=== PATIENT | female | born 1940 | race Caucasian/White ===

== ENCOUNTER 2020-05-04 08:24 | Emergency (ER) | payer MEDICARE, MEDICAID, SELFPAY ==
--- NOTE | ~2020-05-04 | XR_ITS ---
EXAMINATION: BILATERAL KNEE. CLINICAL INFORMATION: Status post fall. Bilateral knee pain. COMPARISON: None TECHNIQUE: 4 views each knee. FINDINGS: Right knee: There is moderate loss of medial and patellofemoral compartment joint space with periarticular spurring. No bony erosive changes seen. The soft tissues are normal. No abnormal joint effusion or loose bodies visualized. Left knee: There is a total left knee prosthesis with prosthetic components alignment. No loosening seen. No abnormal joint effusion. No fracture. 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 No acute fracture or dislocation. Total left knee arthroplasty with prosthetic components in satisfactory alignment.
--- NOTE | ~2020-05-04 | XR_ITS ---
EXAMINATION: BILATERAL KNEE. CLINICAL INFORMATION: Status post fall. Bilateral knee pain. COMPARISON: None TECHNIQUE: 4 views each knee. FINDINGS: Right knee: There is moderate loss of medial and patellofemoral compartment joint space with periarticular spurring. No bony erosive changes seen. The soft tissues are normal. No abnormal joint effusion or loose bodies visualized. Left knee: There is a total left knee prosthesis with prosthetic components alignment. No loosening seen. No abnormal joint effusion. No fracture. 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 No acute fracture or dislocation. Total left knee arthroplasty with prosthetic components in satisfactory alignment.
--- NOTE | ~2020-05-04 | CT_ITS ---
EXAMINATION: CT BRAIN, CT CERVICAL SPINE, CT CHEST AND ABDOMEN WITHOUT CONTRAST. CLINICAL INFORMATION: Unwitnessed fall. History of dementia. COMPARISON: CT brain and cervical spine 09/09/2019. TECHNIQUE: 5 mm thin axial and reformatted 2 mm thin sagittal and coronal images of brain were obtained. 3 mm thin axial and reformatted 2 thin images of cervical spinal performed. Lastly axial 5 mm thin and reformatted 3 mm thin sagittal and coronal images of chest, abdomen and pelvis were obtained without contrast. DLP 2740 FINDINGS: BRAIN: There is no acute intra-axial, extra-axial bleed, masses or midline shift. There is no acute infarction in evolution. The lateral ventricles are symmetrical in size and configuration mild prominence. There is periventricular hypodensity in both cerebral hemispheres without mass effect. Bone windows reveal no calvarial abnormality. There is no scalp abnormality seen. The paranasal sinuses are well-aerated. There is mild mucoperiosteal thickening inferior right mastoid sinus. CERVICAL SPINE: On sagittal reconstructed images there is mild straightening of cervical lordosis. Grade 1 retrolisthesis C4 over C5 is noted. Rest of the alignment is preserved. Loss of C4-C5, C5-C6 and C6-C7 disc heights with posterior spondylosis is noted. There is no visible acute fracture, dislocation or subluxation seen. No lytic or sclerotic process seen. The craniovertebral junction and C1-C2 alignment is normal. CHEST: Both lungs are well-expanded and clear of acute pneumonic process. There are no pulmonary nodules, consolidation or atelectasis. The heart size and the great vessels are normal caliber. There are coronary artery calcifications. No pericardial effusion seen. No abnormal mediastinal or hilar lymph nodes seen. The thyroid lobes are symmetrical and normal. The central trachea and the bronchi are widely patent. The axilla and the chest wall appears unremarkable. Bone windows reveal no visible rib fracture. There are degenerative disc changes and ventral spondylosis mid dorsal spine. No lytic process seen. ABDOMEN AND PELVIS: Visualized liver, spleen and pancreas is unremarkable. There is dependent radiopaque gallstones. The largest radiopaque stone measuring approximately 1.4 cm. No wall thickening seen. Bilateral adrenal glands are symmetrical and normal. Both kidneys are normal size, shape and position. No radiopaque renal calculi or hydroureteronephrosis seen. There is normal cortical thickness. Focal 7 mm calcification is seen in the right renal pelvis likely small aneurysm. No radiopaque renal calculi or hydronephrosis seen. There is scattered stool and gas seen throughout the colon without any significant distention. There are a few scattered diverticuli seen in colon. Mild fat stranding is seen in the perirectal fascia with eccentric wall wall thickening on axial image 58/17 The small bowel loops are normal caliber. There are no diverticula in the disease is suspected diverticulitis. The stomach is unremarkable. Appendix is not seen. The abdominal wall appears unremarkable. No evidence of hernia. Imaging through the pelvis reveals unremarkable nondistended urinary bladder. The uterus is anteverted and appears unremarkable. No adnexal mass or free fluid seen. There is grade 1 anterolisthesis L4 over L5 fusion with degenerative disc changes from L3-L4 through L5-S1 disc levels no lytic or sclerotic process seen. There is bilateral facet joint arthropathy. There is a rudimentary S1-S1 2 disc and lumbar appearing S1 vertebra. CT/CT abdomen pelvis wo con IMPRESSION: No acute intracranial process seen. Minimal inflammatory changes in right inferior mastoid sinus. Degenerative disc changes without acute fracture, dislocation or subluxation in cervical spine. There is no acute process seen in the chest, abdomen and pelvis. There is colonic scattered diverticulosis with nonspecific mild perirectal fat stranding. There is no underlying diverticulitis. There is a eccentric soft tissue thickening lateral rectum. Question underlying lesion. Recommend correlation with endoscopy.
[2020-05-04 08:29] VITALS: BP 110/36; BP 110/60; PULSE 55; RESP 16; TEMP 36.6; O2SAT 96
--- NOTE | 2020-05-04 08:53 | ECG_ITS ---
Test Reason : FALL Blood Pressure : / mmHG Vent. Rate : 056 BPM Atrial Rate : 056 BPM P-R Int : 194 ms QRS Dur : 078 ms QT Int : 468 ms P-R-T Axes : 063 022 042 degrees QTc Int : 451 ms Sinus bradycardia cannot exclude old Septal infarct , age undetermined Abnormal ECG When compared with ECG of 13-FEB-2018 21:34, Septal infarct is now Present - could be from lead placement Referred By: Tess Weathers Electronically Signed By:BRIGID PANCHAL
[2020-05-04 10:01] LABS: MANUAL DIFF FLAG NO
[2020-05-04 10:03] LABS: Basophils Percent Auto 0.3 % (0-2); Eosinophils Absolute Auto 0.2 X10*3/uL (0.0-0.4); Eosinophils Percent Auto 1.9 % (0-4); Hematocrit 36.6 % (37-47); Hemoglobin 11.2 g/dl (12.0-16.0); Imm Gran Abs Auto 0.03 X10*3/uL (0.00-0.03); Imm Gran Pct Auto 0.4 % (0.0-0.4); Lymphocytes Absolute Auto 0.7 X10*3/uL (1.2-4.9); Lymphocytes Percent Auto 9.4 % (20-40); Mean Corpuscular HGB Conc 30.6 g/dl (31.0-35.0); Mean Corpuscular Hemoglobin 28.6 pg (27.0-33.0); Mean Corpuscular Volume 93.6 fL (80-98); Mean Platelet Volume 10.2 fL (9.4-12.3); Monocytes Absolute Auto 0.6 X10*3/uL (0.1-1.2); Monocytes Percent Auto 7.7 % (2-11); Neutrophils Absolute Auto 6.3 X10*3/uL (2.0-8.3); Neutrophils Percent Auto 80.3 % (45-73); Platelet Count 188 X10*3/uL (160-400); Red Blood Count 3.91 X10*6/uL (4.20-5.50); Red Cell Distribution Width 14.6 % (11.0-16.0); White Blood Count 7.8 X10*3/uL (4.8-10.8)
[2020-05-04 10:08] LABS: Prothrombin Time 11.6 SEC (10.8-13.0)
--- NOTE | 2020-05-04 10:08 | PC.NURSE ---
AFIB ON MONITOR, AWAITING CT RESULTS, NAD, NO COMPLAINTS, COLLAR IN PLACE
[2020-05-04 10:26] LABS: Influenza A PCR NEGATIVE (Negative); Influenza B PCR NEGATIVE (Negative); Resp Syncy Virus RNA Qual PCR NEGATIVE (Negative); SARS COV2 PCR INHOUSE NEGATIVE (Negative)
[2020-05-04 10:33] VITALS: BP 123/44; PULSE 55; RESP 18; O2SAT 99
[2020-05-04 10:33] LABS: Alanine Aminotransferase 17 U/L (0-31); Albumin Level 3.4 g/dL (3.5-5.0); Alkaline Phosphatase 57 U/L (39-117); Anion Gap 11 (12-20); Aspartate Amino Transferase 13 U/L (5-31); Bilirubin Direct 0.3 mg/dL (0.0-0.5); Bilirubin Total 0.8 mg/dL (0.0-1.0); Blood Urea Nitrogen 24 mg/dL (9-16); Calcium 8.4 mg/dL (8.4-10.2); Carbon Dioxide 28 mmol/L (22-29); Chloride 107 mmol/L (96-108); Creatinine Clr Calc Pharmacy 54.1; Estimated Glomerular Filt Rate > 60; Glucose Random 78 mg/dL (60-115); Magnesium 1.9 mg/dL (1.6-2.6); Potassium 4.9 mmol/L (3.3-5.1); Sodium 141 mmol/L (135-145); Total Protein 5.3 g/dL (6.5-8.0)
[2020-05-04 10:39] LABS: Troponin-I High Sensitivity 6.5 ng/L (<3.5-17.0)
--- NOTE | 2020-05-04 11:09 | ED_ITS ---
HPI - Fall General Chief Complaint: Fall Stated Complaint: fall Time Seen by Provider: 05/04/20 08:47 Source: patient, EMS and RN notes reviewed Mode of arrival: EMS Limitations: altered mental status (History of dementia) History of Present Illness HPI Narrative: 79-year-old female with a past medical history of dementia with behavioral disturbance, hypothyroidism, secondary hypertension, hyperlipidemia and metabolic syndrome who is currently residing at [facility] at [facility] after an unwitnessed fall unsure if head injury. Patient is not on any blood thinners. Patient is complaining of bilateral knee pain. MD complaint: fall Onset (ago): minute(s) (Prior to arrival) Fall witnessed: no Place fall occurred: assisted/SNF Loss of consciousness: unsure Prolonged down time: unclear Symptoms prior to fall: other (Unsure due to patient history of dementia she cannot remember) Location of injury: other (Patient is complaining of bilateral knee pain) Related Data Allergies Allergy/AdvReac Type Severity Reaction Status Date / Time No Known Allergies Allergy Unverified 11/19/19 17:35 [No Known Allergies*] Review of Systems Review of Systems: Yes Unobtainable due to mental status (History of dementia) [facility] Past Medical History Attestation statement: The following information was validated with the patient. Medical History Dementia with behavioral disturbance Hyperlipemia Hypothyroid Metabolic syndrome Secondary hypertension Social History Social History Advance Directives: Yes Advance Directives Information Provided: No Advance Directives on File: No Physical Exam Vital Signs: Vital Signs: Last Vital Signs Temp 98 F 05/04/20 08:29 Pulse 57 05/04/20 12:54 Resp 16 05/04/20 12:54 BP 127/42 L 05/04/20 12:54 Pulse Ox 98 05/04/20 12:54 Body Mass Index 30.0 Vital signs have been reviewed as normal and appeared to be correct. Blood pressure hypotensive at 110/36. Heart rate bradycardic at 55. Respiration rate normal. Temperature normal. Oxygen saturation normal. Appearance: Alert. Pleasantly confused due to dementia. No acute distress. Head: Normal external exam. Normocephalic. Atraumatic. Able to rotate head bilaterally. Eyes: PERRLA. EOMI. No nystagmus noted. Conjunctiva and sclera normal. Eyelids normal. Corneal reflex normal. ENT: EAC normal. TM's Normal. Hearing normal. Pharynx normal. Uvula midline. tongue midline. Moist mucous membranes. No trismus noted. No drooling noted. No muffled voice noted. No nystagmus noted. Neck: Normal inspection. Neck supple. FROM. No adenopathy. Trachea midline. Thyroid Normal. No meningeal signs. No neck mass noted. CVS: Normal heart rate and rhythm. Heart sound normal. No murmurs noted. Pulses normal throughout. Respiratory: No respiratory distress. Painless inspiration. Breath sounds no rmal. No wheezes/rales/rhonchi noted. Chest nontender. No accessory muscle usage noted or decreased air movement noted. Abdomen: Soft and nontender. Bowel sounds normal in all 4 quadrants. No disten tion noted. No organomegaly noted. No visible injury noted. Back: No CVA tenderness. Full range of motion noted. Skin: Skin warm and dry. Normal skin color. Normal skin turgor. No rashes/lesions/lacerations noted. Extremities: Tender to palpation to bilateral knees. No laxity noted to bilateral knees. No obvious deformities noted to bilateral ease. Full range of motion to bilateral knees. No rashes/lesion/induration/fluctuance/abrasion/lacerations or signs of infection noted to bilateral knees. No calf tenderness noted. No lower extremity edema. Otherwise all other Extremities exhibit normal range of motion and nontender. Able to shrug shoulders bilaterally and keep up against resistance. Neuro: Alert and pleasantly confused due to dementia. No motor deficit. No sensory deficit. Reflexes normal. Moving all extremities. No focal motor deficits. Cranial nerves II-XI intact bilaterally. Facial strength normal. Speech normal. Gait normal. Strength 5/5 throughout. No pronator drift. No tremor noted. No fasciculations noted. No rigidity noted. Muscle tone normal throughout. No asterixis noted. [id number] test normal. Heel to greer test normal. Hand drop from overhead Misses face. NIHSS score 0. Course Course Course Narrative: 8;55am - 79-year-old female with a past medical history of dementia with behavioral disturbance, hypothyroidism, secondary hypertension, hyperlipidemia and metabolic syndrome who is currently residing at SNF at [facility] after an unwitnessed fall unsure if head injury or LOC not on any blood thinners complaining of bilateral knee pain. - on exam patient is alert although pleasantly and confused not in any acute distress. Patient noted to be hypotensive at 110/36 and bradycardic at 55 otherwise all other vitals are within normal limits. No signs of trauma. No signs of dehydration. Heart sounds normal. Lungs clear to auscultation. Abdomen is soft and nontender. No focal neuro deficits noted. NIH SS score 0. - Cncern for CVA vs SAH vs ACS vs electrolyte abnormality vs fall - Plan; Labs, EKG, CT scan of brain/cervical spine, CT scan of chest without contrast, CT scan of abdomen and pelvis without contrast, bilateral knee x-rays then re-evaluate. Reevaluation(s) Reevaluation #1: - patient mild anemia RBC 3.91, hemoglobin 11.2, hematocrit 36.6. - BUN 24 - troponin 6.5 therefore will repeat in 3 hours - otherwise all other labs are within normal limits - EKG is sinus bradycardia no acute ischemic changes noted. - CT SCAN OF BRAIN/CERVICAL SPINE revealed chronic changes no acute processes noted. - CT scan of abdomen and pelvis without contrast revealed diverticulosis with nonspecific mild perirectal fat stranding no underlying diverticulitis although there is the eccentric soft tissue thickening at the lateral rectum questioning underlying lesion recommending correlation with endoscope otherwise no other acute processes noted - awaiting repeat troponin at 12:30pm if negative will DC back to halfway facility. Time: 12:13 Reevaluation #2: - repeat troponin negative delta. Therefore will DC back home back to the halfway facility and instructions to follow-up with primary care provider. Nursing facility updated at this time. Patient's sister Anika was also updated at this time. Time: 13:27 MDM - Fall Medical Records Attestation: I reviewed the patient's medical records. Lab Data Attestation: I reviewed the patient's lab results. Result diagrams: 05/04/20 09:39 05/04/20 09:39 Labs: Lab Results 05/04/20 05/04/20 05/04/20 Range/Units 09:38 09:39 09:39 WBC 7.8 (4.8-10.8) X10*3/uL RBC 3.91 L (4.20-5.50) X10*6/uL Hgb 11.2 L (12.0-16.0) g/dl Hct 36.6 L (37-47) % MCV 93.6 (80-98) fL MCH 28.6 (27.0-33.0) pg MCHC 30.6 L (31.0-35.0) g/dl RDW 14.6 (11.0-16.0) % Plt Count 188 (160-400) X10*3/uL MPV 10.2 (9.4-12.3) fL Immature Gran % (Auto) 0.4 (0.0-0.4) % Neut % (Auto) 80.3 H (45-73) % Lymph % (Auto) 9.4 L (20-40) % [place] % (Auto) 7.7 (2-11) % Eos % (Auto) 1.9 (0-4) % Baso % (Auto) 0.3 (0-2) % Lymph # (Auto) 0.7 L (1.2-4.9) X10*3/uL [place] # (Auto) 0.6 (0.1-1.2) X10*3/uL Eos # (Auto) 0.2 (0.0-0.4) X10*3/uL Baso # (Auto) 0.0 (0.0-0.2) X10*3/uL Abs Immat Gran (auto) 0.03 (0.00-0.03) X10*3/uL Absolute Neuts (auto) 6.3 (2.0-8.3) X10*3/uL Absolute Nucleated RBC 0.000 (0.0-0.012) X10*3/uL Nucleated RBC % (auto) 0.0 (0.0-0.2) /100WBC PT (10.8-13.0) SEC INR (0.9-1.1) Sodium 141 (135-145) mmol/L Potassium 4.9 (3.3-5.1) mmol/L Chloride 107 (96-108) mmol/L Carbon Dioxide 28 (22-29) mmol/L Anion Gap 11 L (12-20) BUN 24 H (9-16) mg/dL Creatinine 0.86 (0.5-1.4) mg/dL Estim Creat Clear Calc 54.1 Estimated GFR > 60 Random Glucose 78 (60-115) mg/dL Calcium 8.4 (8.4-10.2) mg/dL Magnesium 1.9 (1.6-2.6) mg/dL Total Bilirubin 0.8 (0.0-1.0) mg/dL Direct Bilirubin 0.3 (0.0-0.5) mg/dL AST 13 (5-31) U/L ALT 17 (0-31) U/L Alkaline Phosphatase 57 (39-117) U/L Total Creatine Kinase 35 (26-140) U/L Troponin I High Sens (<3.5-17.0) ng/L Total Protein 5.3 L (6.5-8.0) g/dL Albumin 3.4 L (3.5-5.0) g/dL TSH 2.28 (0.32-4.0) uIU/mL Urine Color Urine Appearance Urine pH (5.0-8.0) Ur Specific [place] (1.005-1.025) Urine Protein (NEG-TRACE) MG/DL Urine Glucose (UA) (NEG) MG/DL Urine Ketones (NEG) MG/DL Urine Blood (NEG) Urine Nitrite (NEG) Ur Leukocyte Esterase (NEG) Urine RBC (0) /HPF Urine WBC (0-4) /HPF Ur Squamous Epith Cells /LPF Urine Bacteria /LPF Coronavirus (PCR) NEGATIVE (Negative) Influenza Type A (PCR) NEGATIVE (Negative) Influenza Type B (PCR) NEGATIVE (Negative) RSV RNA Qual (PCR) NEGATIVE (Negative) 05/04/20 05/04/20 05/04/20 Range/Units 09:39 09:39 12:38 WBC (4.8-10.8) X10*3/uL RBC (4.20-5.50) X10*6/uL Hgb (12.0-16.0) g/dl Hct (37-47) % MCV (80-98) fL MCH (27.0-33.0) pg MCHC (31.0-35.0) g/dl RDW (11.0-16.0) % Plt Count (160-400) X10*3/uL MPV (9.4-12.3) fL Immature Gran % (Auto) (0.0-0.4) % Neut % (Auto) (45-73) % Lymph % (Auto) (20-40) % [place] % (Auto) (2-11) % Eos % (Auto) (0-4) % Baso % (Auto) (0-2) % Lymph # (Auto) (1.2-4.9) X10*3/uL [place] # (Auto) (0.1-1.2) X10*3/uL Eos # (Auto) (0.0-0.4) X10*3/uL Baso # (Auto) (0.0-0.2) X10*3/uL Abs Immat Gran (auto) (0.00-0.03) X10*3/uL Absolute Neuts (auto) (2.0-8.3) X10*3/uL Absolute Nucleated RBC (0.0-0.012) X10*3/uL Nucleated RBC % (auto) (0.0-0.2) /100WBC PT 11.6 (10.8-13.0) SEC INR 1.0 (0.9-1.1) Sodium (135-145) mmol/L Potassium (3.3-5.1) mmol/L Chloride (96-108) mmol/L Carbon Dioxide (22-29) mmol/L Anion Gap (12-20) BUN (9-16) mg/dL Creatinine (0.5-1.4) mg/dL Estim Creat Clear Calc Estimated GFR Random Glucose (60-115) mg/dL Calcium (8.4-10.2) mg/dL Magnesium (1.6-2.6) mg/dL Total Bilirubin (0.0-1.0) mg/dL Direct Bilirubin (0.0-0.5) mg/dL AST (5-31) U/L ALT (0-31) U/L Alkaline Phosphatase (39-117) U/L Total Creatine Kinase (26-140) U/L Troponin I High Sens 6.5 7.6 (<3.5-17.0) ng/L Total Protein (6.5-8.0) g/dL Albumin (3.5-5.0) g/dL TSH (0.32-4.0) uIU/mL Urine Color Urine Appearance Urine pH (5.0-8.0) Ur Specific [place] (1.005-1.025) Urine Protein (NEG-TRACE) MG/DL Urine Glucose (UA) (NEG) MG/DL Urine Ketones (NEG) MG/DL Urine Blood (NEG) Urine Nitrite (NEG) Ur Leukocyte Esterase (NEG) Urine RBC (0) /HPF Urine WBC (0-4) /HPF Ur Squamous Epith Cells /LPF Urine Bacteria /LPF Coronavirus (PCR) (Negative) Influenza Type A (PCR) (Negative) Influenza Type B (PCR) (Negative) RSV RNA Qual (PCR) (Negative) 05/04/20 Range/Units 12:53 WBC (4.8-10.8) X10*3/uL RBC (4.20-5.50) X10*6/uL Hgb (12.0-16.0) g/dl Hct (37-47) % MCV (80-98) fL MCH (27.0-33.0) pg MCHC (31.0-35.0) g/dl RDW (11.0-16.0) % Plt Count (160-400) X10*3/uL MPV (9.4-12.3) fL Immature Gran % (Auto) (0.0-0.4) % Neut % (Auto) (45-73) % Lymph % (Auto) (20-40) % [place] % (Auto) (2-11) % Eos % (Auto) (0-4) % Baso % (Auto) (0-2) % Lymph # (Auto) (1.2-4.9) X10*3/uL [place] # (Auto) (0.1-1.2) X10*3/uL Eos # (Auto) (0.0-0.4) X10*3/uL Baso # (Auto) (0.0-0.2) X10*3/uL Abs Immat Gran (auto) (0.00-0.03) X10*3/uL Absolute Neuts (auto) (2.0-8.3) X10*3/uL Absolute Nucleated RBC (0.0-0.012) X10*3/uL Nucleated RBC % (auto) (0.0-0.2) /100WBC PT (10.8-13.0) SEC INR (0.9-1.1) Sodium (135-145) mmol/L Potassium (3.3-5.1) mmol/L Chloride (96-108) mmol/L Carbon Dioxide (22-29) mmol/L Anion Gap (12-20) BUN (9-16) mg/dL Creatinine (0.5-1.4) mg/dL Estim Creat Clear Calc Estimated GFR Random Glucose (60-115) mg/dL Calcium (8.4-10.2) mg/dL Magnesium (1.6-2.6) mg/dL Total Bilirubin (0.0-1.0) mg/dL Direct Bilirubin (0.0-0.5) mg/dL AST (5-31) U/L ALT (0-31) U/L Alkaline Phosphatase (39-117) U/L Total Creatine Kinase (26-140) U/L Troponin I High Sens (<3.5-17.0) ng/L Total Protein (6.5-8.0) g/dL Albumin (3.5-5.0) g/dL TSH (0.32-4.0) uIU/mL Urine Color YELLOW Urine Appearance HAZY Urine pH 5.5 (5.0-8.0) Ur Specific [place] 1.020 (1.005-1.025) Urine Protein NEG (NEG-TRACE) MG/DL Urine Glucose (UA) NEG (NEG) MG/DL Urine Ketones NEG (NEG) MG/DL Urine Blood NEG (NEG) Urine Nitrite POS H (NEG) Ur Leukocyte Esterase TRACE H (NEG) Urine RBC 0 (0) /HPF Urine WBC 1-4 (0-4) /HPF Ur Squamous Epith Cells 3+ /LPF Urine Bacteria 4+ /LPF Coronavirus (PCR) (Negative) Influenza Type A (PCR) (Negative) Influenza Type B (PCR) (Negative) RSV RNA Qual (PCR) (Negative) Imaging Data CT scan of brain/cervical spine/chest/abdomen and pelvis without contrast: Attestation: I personally reviewed and interpreted this imaging study as follows: Radiologist's impression: FINDINGS: BRAIN: There is no acute intra-axial, extra-axial bleed, masses or midline shift. There is no acute infarction in evolution. The lateral ventricles are symmetrical in size and configuration mild prominence. There is periventricular hypodensity in both cerebral hemispheres without mass effect. Bone windows reveal no calvarial abnormality. There is no scalp abnormality seen. The paranasal sinuses are well-aerated. There is mild mucoperiosteal thickening inferior right mastoid sinus. CERVICAL SPINE: On sagittal reconstructed images there is mild straightening of cervical lordosis. Grade 1 retrolisthesis C4 over C5 is noted. Rest of the alignment is preserved. Loss of C4-C5, C5-C6 and C6-C7 disc heights with posterior spondylosis is noted. There is no visible acute fracture, dislocation or subluxation seen. No lytic or sclerotic process seen. The craniovertebral junction and C1-C2 alignment is normal. CHEST: Both lungs are well-expanded and clear of acute pneumonic process. There are no pulmonary nodules, consolidation or atelectasis. The heart size and the great vessels are normal caliber. There are coronary artery calcifications. No pericardial effusion seen. No abnormal mediastinal or hilar lymph nodes seen. The thyroid lobes are symmetrical and normal. The central trachea and the bronchi are widely patent. The axilla and the chest wall appears unremarkable. Bone windows reveal no visible rib fracture. There are degenerative disc changes and ventral spondylosis mid dorsal spine. No lytic process seen. ABDOMEN AND PELVIS: Visualized liver, spleen and pancreas is unremarkable. There is dependent radiopaque gallstones. The largest radiopaque stone measuring approximately 1.4 cm. No wall thickening seen. Bilateral adrenal glands are symmetrical and normal. Both kidneys are normal size, shape and position. No radiopaque renal calculi or hydroureteronephrosis seen. There is normal cortical thickness. Focal 7 mm calcification is seen in the right renal pelvis likely small aneurysm. No radiopaque renal calculi or hydronephrosis seen. There is scattered stool and gas seen throughout the colon without any significant distention. There are a few scattered diverticuli seen in colon. Mild fat stranding is seen in the perirectal fascia with eccentric wall wall thickening on axial image 58/17 The small bowel loops are normal caliber. There are no diverticula in the disease is suspected diverticulitis. The stomach is unremarkable. Appendix is not seen. The abdominal wall appears unremarkable. No evidence of hernia. Imaging through the pelvis reveals unremarkable nondistended urinary bladder. The uterus is anteverted and appears unremarkable. No adnexal mass or free fluid seen. There is grade 1 anterolisthesis L4 over L5 fusion with degenerative disc changes from L3-L4 through L5-S1 disc levels no lytic or sclerotic process seen. There is bilateral facet joint arthropathy. There is a rudimentary S1-S1 2 disc and lumbar appearing S1 vertebra. CT/CT head/brain wo con IMPRESSION: No acute intracranial process seen. Minimal inflammatory changes in right inferior mastoid sinus. Degenerative disc changes without acute fracture, dislocation or subluxation in cervical spine. There is no acute process seen in the chest, abdomen and pelvis. There is colonic scattered diverticulosis with nonspecific mild perirectal fat stranding. There is no underlying diverticulitis. There is a eccentric soft tissue thickening lateral rectum. Question underlying lesion. Recommend correlation with endoscopy. Bilateral knee x-ray: Attestation: I personally reviewed and interpreted this imaging study as follows: Radiologist's impression: FINDINGS: Right knee: There is moderate loss of medial and patellofemoral compartment joint space with periarticular spurring. No bony erosive changes seen. The soft tissues are normal. No abnormal joint effusion or loose bodies visualized. Left knee: There is a total left knee prosthesis with prosthetic components alignment. No loosening seen. No abnormal joint effusion. No fracture. 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 No acute fracture or dislocation. Total left knee arthroplasty with prosthetic components in satisfactory alignment. ECG Data Attestation: I personally reviewed and interpreted this ECG as follows: ECG interpretation date: 05/04/20 ECG interpretation time: 09:41 Interpretation: Sinus bradycardia with ventricular rate of [address] abnormalities no acute ischemic changes noted. Similar when compared to prior EKG on 02/13/2018. Critical Care Time Critical Care Time Critical Care Time: Yes Total Critical Care Time: 60 Attestation: I personally attest to this time spent taking care of the patient Discharge Plan Discharge Clinical Impression: Fall, Knee sprain, bilateral, Abnormal abdominal CT scan Patient Disposition: Home, Self-Care Instructions: Fall Prevention (ED), Knee Sprain (ED) Additional Instructions: On CT scan of abdomen and pelvis without contrast there was noted to be a centric soft tissue thickening lateral rectum questioning underlying lesion. They recommend correlation with endoscopy by PCP as an outpatient. Patient had a CT scan of brain/cervical spine/chest and they were all within normal limits no acute processes only chronic changes noted. I updated the patient's sister Anika told her about the fall and told her that everything was normal she was going back to the halfway facility. Referrals: Nicki Toney MD [Primary Care Provider] - 2 days Print Language: Turkish
[2020-05-04 12:54] VITALS: BP 127/42; PULSE 57; RESP 16; O2SAT 98
[2020-05-04 13:02] LABS: Thyroid Stimulating Hormone 2.28 uIU/mL (0.32-4.0)
[2020-05-04 13:03] LABS: Color Urine YELLOW; Glucose Urine UA NEG (NEG); Leukocyte Esterase Urine TRACE (NEG); Nitrite Urine POS (NEG); PH 5.5 (5.0-8.0); UACC Culture Trigger YES; Urine Blood NEG (NEG); Urine Ketones NEG (NEG); Urine Protein NEG (NEG-TRACE)
[2020-05-04 13:04] LABS: Appearance Urine HAZY
[2020-05-04 13:09] LABS: Bacteria Urine 4+ /LPF; RBC Urine 0 /HPF (0); Squamous Epithelial Cell Urine 3+ /LPF
[2020-05-04 13:16] LABS: Troponin-I High Sensitivity 7.6 ng/L (<3.5-17.0)
--- NOTE | 2020-05-04 14:41 | PC.NURSE ---
rn to rn yury, to Laura, she states that the pt is pleasantly confused and rarely falls, states she does well w assisted living, awaiting ems for a ride home
== END 2020-05-04 16:38 | disposition home or self-care (01) ==
PROVIDERS: Physician Assistant Medical; Emergency Provider Emergency Medicine; PCP Internal Medicine
DX: S83.92XA Sprain of unspecified site of left knee, initial encounter (principal); S83.91XA Sprain of unspecified site of right knee, initial encounter; M54.2 Cervicalgia; M25.562 Pain in left knee; M25.561 Pain in right knee; F03.90 Unspecified dementia, unspecified severity, without behavioral disturbance, psychotic disturbance, mood disturbance, and anxiety; I10 Essential (primary) hypertension; E78.5 Hyperlipidemia, unspecified; W01.0XXA Fall on same level from slipping, tripping and stumbling without subsequent striking against object, initial encounter; Y93.9 Activity, unspecified; Y92.9 Unspecified place or not applicable; Y99.9 Unspecified external cause status; Z20.822 Contact with and (suspected) exposure to COVID-19
CPT/HCPCS: 0241U; 36415; 70450; 71250; 72125; 73564; 74176; 80048; 80076; 81001; 81003; 82550; 83735; 84443; 84484; 85025; 85610; 87086; 87088; 87186; 93005; 99283; 99284

== ENCOUNTER 2020-12-07 18:38 | Emergency (ER) | payer MEDICARE, MEDICAID, SELFPAY ==
--- NOTE | ~2020-12-07 | XR_ITS ---
EXAMINATION: XR KNEE, RIGHT CLINICAL INFORMATION: Right knee pain COMPARISON: None TECHNIQUE: Four views of the right knee. FINDINGS: There is loss of medial and patellofemoral compartment joint space with moderate periarticular spurring the medial compartment. No loose bodies or bony erosive changes seen. There is mild suprapatellar joint effusion. The soft tissues are normal. XR/XR knee RT 2V IMPRESSION: Advanced degenerative changes medial and patellofemoral compartment. There is mild suprapatellar joint effusion.
[2020-12-07 18:47] VITALS: BP 105/44; BP 112/50; PULSE 64; RESP 16; TEMP 37.1; O2SAT 97; BMI 26.5
--- NOTE | 2020-12-07 20:13 | ED.EXTPRO ---
HPI - Extremity Problem General Chief complaint: Extremity Problem Stated complaint: RIGHT KNEE PAIN Time Seen by Provider: 12/07/20 19:12 Source: patient and EMS Mode of arrival: EMS Limitations: other (Dementia) History of Present Illness HPI Narrative: 80-year-old female history of advanced dementia lives at the intermediate, patient was sent from intermediate for right knee pain, patient unable to give a good history, no reported history of fall. Related Data Previous Rx's Medication Instructions Recorded cephalexin 500 mg capsule 500 mg PO BID 7 Days #14 cap 05/11/20 Allergies Allergy/AdvReac Type Severity Reaction Status Date / Time No Known Allergies Allergy Unverified 11/19/19 17:35 [No Known Allergies*] Review of Systems Review of Systems: All other systems are reviewed and are negative Constitutional: Reports as per HPI and Reports no additional constitutional complaints Eyes: Reports as per HPI and Reports no additional eye complaints Reports system reviewed and no additional complaints, except as documented Cardiovascular: Reports as per HPI and Reports no additional cardiovascular complaints Respiratory: Reports as per HPI and Reports no additional respiratory complaints Gastrointestinal: Reports as per HPI and Reports no additional gastrointestinal complaints Genitourinary: Reports no additional female genitourinary complaints Musculoskeletal: Reports no additional musculoskeletal complaints Skin/Breast: Reports system reviewed and no additional complaints, except as docu Psychiatric: Reports no additional psychiatric complaints Endocrine: Reports no additional endocrine complaints Hematologic/Lymphatic: Reports no additional hematologic/lymphatic complaints Allergic/Immunologic: Reports no additional allergic/immunologic complaints Reports system reviewed and no additional complaints, except as documented and Reports Abnormal speech present PMFSH Past Medical History Medical History Dementia with behavioral disturbance Hyperlipemia Hypothyroid Metabolic syndrome Secondary hypertension Social History Social History Advance Directives: No Advance Directives Information Provided: No Physical Exam Vital Signs: Vital Signs: Last Vital Signs Temp 98.7 F 12/07/20 18:47 Pulse 64 12/07/20 18:47 Resp 16 12/07/20 18:47 BP 105/44 L 12/07/20 18:47 Pulse Ox 97 12/07/20 18:47 Body Mass Index 26.5 Vital signs have been reviewed as appeared to be correct. Blood pressure normal. Heart rate normal. Respiration rate normal. Temperature normal. Oxygen saturation normal. Appearance: acute distress. Head: Normal external exam. Normocephalic. Atraumatic. No Buchanan signs noted. No raccoon eyes noted Eyes: PERRLA. EOMI. Conjunctiva and sclera normal. Eyelids normal. ENT: TM's Normal. Pharynx normal. Uvula midline. Moist mucous membranes. No trismus noted. No drooling noted. No muffled voice noted. Neck: Normal inspection. Neck supple. FROM. No adenopathy. Thyroid Normal. No meningeal signs. No neck mass noted. CVS: Normal heart rate and rhythm. Heart sound normal. No murmurs noted. Pulses normal throughout. Respiratory: No respiratory distress. Painless inspiration. Breath sounds normal. No wheezes/rales/rhonchi noted. Chest nontender. No accessory muscle usage noted or decreased air movement noted. Abdomen: Soft and nontender. Bowel sounds normal in all 4 quadrants. No distention noted. No organomegaly noted. No visible injury noted. Back: No CVA tenderness. Full range of motion noted. Skin: Skin warm and dry. Normal skin color. Normal skin turgor. No rashes/lesions/lacerations noted. Extremities: No lower extremity edema. Extremities exhibit normal range of motion. Extremities nontender. Neuro: Cranial nerve exam: II-XII are grossly intact No motor deficit. No sensory deficit. Reflexes normal. Course Course Course Narrative: Assessment and plan. 80-year-old female came in for evaluation of her right knee pain are no reported fall or injury or trauma. MDM - Extremity (Nontraumatic) Imaging Data Right knee x-ray: Radiologist's impression: Advanced degenerative changes medial and patellofemoral compartment. ?There is mild suprapatellar joint effusion. ? Discharge Plan Discharge Clinical Impression: Dementia Qualifiers: Dementia type: unspecified type Acute knee pain Qualifiers: Laterality: right Qualified Code(s): M25.561 - Pain in right knee Patient Disposition: Xfer SNF Instructions: Dementia (ED) Prescriptions: No Action cephalexin 500 mg capsule 500 mg PO BID 7 Days Qty: 14 RF: 0 Referrals: Nicki Toney MD [Primary Care Provider] - 2 days
== END 2020-12-07 21:27 | disposition skilled nursing facility (03) ==
PROVIDERS: Emergency Provider Emergency Medicine; PCP Internal Medicine
DX: M25.561 Pain in right knee (principal); F03.90 Unspecified dementia, unspecified severity, without behavioral disturbance, psychotic disturbance, mood disturbance, and anxiety
CPT/HCPCS: 73560; 99283

== ENCOUNTER 2021-07-04 11:13 | Emergency (ER) | payer MEDICARE, MEDICAID, SELFPAY ==
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
[2021-07-04 11:28] VITALS: PULSE 81; RESP 16; BMI 30.2
--- NOTE | 2021-07-04 11:29 | ECG_ITS ---
Test Reason : AMS Blood Pressure : / mmHG Vent. Rate : 067 BPM Atrial Rate : 000 BPM P-R Int : 000 ms QRS Dur : 092 ms QT Int : 408 ms P-R-T Axes : 000 -19 057 degrees QTc Int : 431 ms Normal sinus rhythm with Mobitz I (Wenckebach) block with Premature atrial complexes Abnormal ECG When compared with ECG of 04-MAY-2020 09:41, Atrial fibrillation has replaced Sinus rhythm Normal sinus rhythm with Mobitz I (Wenckebach) block is now Present Referred By: Pricilla Olguin Electronically Signed By:VIOLETA HERR MD
[2021-07-04 11:47] LABS: MANUAL DIFF FLAG NO
[2021-07-04 11:52] VITALS: TEMP 36.8
[2021-07-04 11:52] LABS: Basophils Percent Auto 0.2 % (0-2); Eosinophils Absolute Auto 0.1 X10*3/uL (0.0-0.4); Eosinophils Percent Auto 1.7 % (0-4); Hematocrit 37.8 % (37.0-47.0); Hemoglobin 11.7 g/dl (12.0-16.0); Imm Gran Abs Auto 0.02 X10*3/uL (0.00-0.03); Imm Gran Pct Auto 0.4 % (0.0-0.4); Lymphocytes Absolute Auto 0.7 X10*3/uL (1.2-4.9); Lymphocytes Percent Auto 12.4 % (20-40); Mean Corpuscular Hemoglobin 28.3 pg (27.0-33.0); Mean Corpuscular Volume 91.5 fL (80.0-98.0); Mean Platelet Volume 10.3 fL (9.4-12.3); Monocytes Absolute Auto 0.4 X10*3/uL (0.1-1.2); Monocytes Percent Auto 6.5 % (2-11); Neutrophils Absolute Auto 4.3 x10*3/uL (2.0-8.3); Neutrophils Percent Auto 78.8 % (45-73); Platelet Count 194 X10*3/uL (160-400); Red Blood Count 4.13 X10*6/uL (4.20-5.50); Red Cell Distribution Width 15.1 % (11.0-16.0); White Blood Count 5.4 X10*3/uL (4.8-10.8)
[2021-07-04 12:07] LABS: COVID-19 Test Negative (Negative)
[2021-07-04 12:08] LABS: Alanine Aminotransferase 10 U/L (0-31); Albumin Level 3.7 g/dL (3.5-5.0); Alkaline Phosphatase 76 U/L (39-117); Anion Gap 12 (12-20); Aspartate Amino Transferase 17 U/L (5-31); Bilirubin Direct 0.4 mg/dL (0.0-0.5); Bilirubin Total 0.9 mg/dL (0.0-1.0); Blood Urea Nitrogen 22 mg/dL (9-16); Calcium 9.1 mg/dL (8.4-10.2); Carbon Dioxide 30 mmol/L (22-29); Chloride 109 mmol/L (96-108); Creatinine Clr Calc Pharmacy 54.7; Estimated Glomerular Filt Rate > 60; Glucose Random 98 mg/dL (60-115); Potassium 3.8 mmol/L (3.3-5.1); Sodium 147 mmol/L (135-145); Total Protein 6.1 g/dL (6.5-8.0)
[2021-07-04 12:27] LABS: TSH reflex Free T4 3.09 uIU/mL (0.32-4.0)
[2021-07-04] MEDS: OLANZapine 2.5 MG TABLET PO (12:53)
[2021-07-04 14:00] VITALS: RESP 16
[2021-07-04 16:13] LABS: Appearance Urine HAZY; Color Urine YELLOW; Glucose Urine UA NEG (NEG); Leukocyte Esterase Urine 1+ (NEG); Nitrite Urine POS (NEG); Specific Gravity - Urine >= 1.030 (1.005-1.025); UACC Culture Trigger YES; Urine Blood TRACE (NEG); Urine Ketones NEG (NEG); Urine Protein TRACE MG/DL (NEG-TRACE)
[2021-07-04 16:20] LABS: Bacteria Urine 4+ /LPF; RBC Urine 0-2 /HPF (0); Squamous Epithelial Cell Urine 3+ /LPF
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
[2021-07-04] MEDS: LORazepam 1 MG TABLET PO (21:03)
--- NOTE | 2021-07-04 22:09 | PC.NURSE ---
call out to [facility] @2108 for ETA on transport. spoke to Sammie was given the time of [id number]
== END 2021-07-04 23:48 | disposition home or self-care (01) ==
PROVIDERS: Emergency Provider Emergency Medicine; PCP Internal Medicine
DX: F03.91 Unspecified dementia, unspecified severity, with behavioral disturbance (principal); R41.82 Altered mental status, unspecified; Z20.822 Contact with and (suspected) exposure to COVID-19; Z79.899 Other long term (current) drug therapy
CPT/HCPCS: 36415; 80048; 80076; 81001; 84443; 85025; 87086; 87088; 87186; 87635; 93005; 99284; 99285

== ENCOUNTER 2021-08-14 12:12 | Emergency (ER) | payer MEDICARE, MEDICAID, SELFPAY ==
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
[2021-08-14 12:19] VITALS: BP 134/29; PULSE 66; RESP 16; O2SAT 98; BMI 30.2
[2021-08-14 12:28] LABS: MANUAL DIFF FLAG NO
[2021-08-14 12:30] LABS: Basophils Percent Auto 0.3 % (0-2); Eosinophils Absolute Auto 0.1 X10*3/uL (0.0-0.4); Eosinophils Percent Auto 0.8 % (0-4); Hematocrit 36.4 % (37.0-47.0); Imm Gran Abs Auto 0.02 X10*3/uL (0.00-0.03); Imm Gran Pct Auto 0.3 % (0.0-0.4); Lymphocytes Absolute Auto 0.8 X10*3/uL (1.2-4.9); Lymphocytes Percent Auto 13.8 % (20-40); Mean Corpuscular HGB Conc 30.2 g/dl (31.0-35.0); Mean Corpuscular Hemoglobin 27.7 pg (27.0-33.0); Mean Corpuscular Volume 91.7 fL (80.0-98.0); Mean Platelet Volume 10.1 fL (9.4-12.3); Monocytes Absolute Auto 0.4 X10*3/uL (0.1-1.2); Monocytes Percent Auto 7.4 % (2-11); Neutrophils Absolute Auto 4.6 x10*3/uL (2.0-8.3); Neutrophils Percent Auto 77.4 % (45-73); Platelet Count 190 X10*3/uL (160-400); Red Blood Count 3.97 X10*6/uL (4.20-5.50); Red Cell Distribution Width 15.4 % (11.0-16.0); White Blood Count 5.9 X10*3/uL (4.8-10.8)
[2021-08-14 12:48] LABS: Alanine Aminotransferase 11 U/L (0-31); Albumin Level 3.8 g/dL (3.5-5.0); Alkaline Phosphatase 75 U/L (39-117); Anion Gap 13 (12-20); Aspartate Amino Transferase 15 U/L (5-31); Bilirubin Direct 0.3 mg/dL (0.0-0.5); Bilirubin Total 0.7 mg/dL (0.0-1.0); Blood Urea Nitrogen 29 mg/dL (9-16); Calcium 9.2 mg/dL (8.4-10.2); Carbon Dioxide 30 mmol/L (22-29); Chloride 106 mmol/L (96-108); Creatinine Clr Calc Pharmacy 56.6; Estimated Glomerular Filt Rate > 60; Glucose Random 115 mg/dL (60-115); Potassium 4.6 mmol/L (3.3-5.1); Sodium 144 mmol/L (135-145); Total Protein 6.2 g/dL (6.5-8.0)
[2021-08-14 12:49] LABS: Appearance Urine HAZY; Color Urine YELLOW; Glucose Urine UA NEG (NEG); Leukocyte Esterase Urine TRACE (NEG); Nitrite Urine POS (NEG); PH 6.5 (5.0-8.0); UACC Culture Trigger YES; Urine Blood NEG (NEG); Urine Ketones NEG (NEG); Urine Protein NEG (NEG-TRACE)
[2021-08-14 13:19] LABS: Bacteria Urine 4+ /LPF; RBC Urine 0 /HPF (0); Renal Epithelial Cells Urine 2+ /LPF; Squamous Epithelial Cell Urine 1+ /LPF
[2021-08-14] MEDS: cefTRIAXone sodium 1 GM, Lidocaine HCl 1 % MPF 2.1 ML IM (15:33)
[2021-08-14] MEDS: LORazepam 2 MG/ML VIAL 1 MG IM (20:45)
--- NOTE | 2021-08-14 20:49 | PHA.MEDREC ---
MED REC COMPLETE, NO ISSUES Pharmacy Consult ? Medication Reconciliation Pharmacy has completed the medication reconciliation.
--- NOTE | 2021-08-14 23:11 | PC.NURSE ---
Masood with [facility] stopped by to assess patient-patient is sleeping s/p Lorazepam 1 gm IM-plan is for pt to stay overnight and [facility] to reassess in am.
--- NOTE | 2021-08-14 23:56 | PC.NURSE ---
KEITH COOPER IS AWARE PATIENT REFUSED VITALS SIGNS.
[2021-08-14 23:58] VITALS: RESP 16
[2021-08-15] VITALS (16 sets, daily range): BP systolic 122–146; BP diastolic 35–62; PULSE 59–95; RESP 16–24; TEMP 36.5–36.6; O2SAT 94–97
--- NOTE | 2021-08-15 01:05 | PC.NURSE ---
PATIENT WAS INC OF URINE ,BED BATH GIVEN ,LINEN CHANGE ,PATIENT WAS OFFER A DRINK ,AND DRANK 120 ML APPLE JUICE .
--- NOTE | 2021-08-15 06:33 | PC.NURSE ---
PATIENT WAS INC OF URINE ,ARE WAS GIVEN ,PATIENT WAS VERY COMBATIVE DURING CARE ,RN AWARE .
--- NOTE | 2021-08-15 09:21 | PC.NURSE ---
CONFUSED, GARBLED SPEECH , AGITATED WHEN I ATTEMPTED TO GIVE MEDS, DID NOT TAKE ANY. UNABLE TO FOLLOW COMMANDS/INSTRUCTIONS, DIDN'T PUT HAND OUT FOR MEDS OR DRIN\K, WHEN PILL PLACED ROBERT MOUTH PT SPIT IT OUT AND HELLD THE STRAW IN HER MOUTH FOR A MINUTE BUT HE PUSHED AWAY THE CUP
[2021-08-15] MEDS: cefTRIAXone sodium 1 GM, Lidocaine HCl 1 % MPF 2.1 ML IM (10:37)
--- NOTE | 2021-08-15 10:44 | PC.NURSE ---
im rocephin given as she refused to take po meds
--- NOTE | 2021-08-15 14:02 | MHC.CARE ---
Pt is an 80 year old female, here from SNF due to dementia with agitation. N attempted to see pt, however they were not aware that pt has an untreated UTI. Pt is receiving antibiotics at this time. Pt does not meet criteria for IPLOC at this time, as UTI will first be addressed. If behaviors continue, SNF should have pt re-assessed once she has been treated for the UTI. Pt is not currently in need of crisis assessment. CARE Team speaks with Dr. Olguin, plan is for pt to return to SNF tomorrow.
[2021-08-15] MEDS: Acetaminophen 325 MG TABLET 650 MG PO (14:11)
[2021-08-15] MEDS: OLANZapine 10 MG VIAL 5 MG IM (14:13)
--- NOTE | 2021-08-15 15:44 | PC.NURSE ---
1500: pt on hospital bed. pericare done. pillow applied.
--- NOTE | 2021-08-15 18:14 | PC.NURSE ---
Linens changed urine incontinent, pt striking arms and legs on rails of bed. seziure pads applied to reduce self injury. Bed alarm on camera at [facility]
[2021-08-15] MEDS: traZODone HCL 50 MG TABLET PO (19:38)
[2021-08-15] MEDS: Sertraline HCL 50 MG TABLET PO (19:39)
[2021-08-15] MEDS: LORazepam 2 MG/ML VIAL 1 MG IM (19:52)
[2021-08-15] MEDS: diphenhydrAMINE HCL 25 MG TABLET PO (19:56)
--- NOTE | 2021-08-16 02:33 | PC.NURSE ---
Assist nurse with patient changeover operator and placed purewick.
--- NOTE | 2021-08-16 04:14 | PC.NURSE ---
I assumed care of this pt at 2300. Since that time Claudia has been sleeping in bed, arousable to verbal stimuli. She was incontinent of a large amount of urine. Skin was cleansed, linens changed, PearWICK applied by [employer]. pt is BEDOYA x 4, she responds verbally but not apppropriately. Her respirations have been non-labored, no cyanosis. She becomes agitated with minial amount of physical stimulation (ie: turning her in bed to change linens) but becomes less agitated within minutes with calm verbal reassurance. Cong remain in ED, with eye in the karen camera in her room, until AM at which time she will be re-evaluated by ER MD's.
[2021-08-16 06:14] VITALS: BP 141/52; PULSE 69; RESP 14; TEMP 37.2
[2021-08-16] MEDS: Levothyroxine Sodium 50 MCG TABLET PO (06:32)
--- NOTE | 2021-08-16 10:56 | PC.NURSE ---
CHANGED AND REPOSITIONED PT, SCREAMING THE ENTIRE TIME, TRYING TO HIT, ATTEMPTED TO FEED PT AND SHE SPIT IT OUT. PROVIDER AWARE
--- NOTE | 2021-08-16 10:58 | PC.NURSE ---
ATTEMPTED TO GIVE MEDICATIONS CRUSHED IN PUDDING PT SPIT OUT PUDDING
[2021-08-16] MEDS: cefTRIAXone sodium 1 GM, Lidocaine HCl 1 % MPF 2.1 ML IM (11:17)
[2021-08-16 12:59] VITALS: BP 129/77; PULSE 68; RESP 13; O2SAT 96
[2021-08-16 16:21] VITALS: PULSE 72; RESP 18; O2SAT 93
--- NOTE | 2021-08-16 16:22 | PC.NURSE ---
Linens changed, repositioned in bed. Attempting to provide pt with ordered rxs, mixed with jello. Per previous RN, pt has not eaten today. pt continues to refuse.
--- NOTE | 2021-08-16 21:24 | PC.NURSE ---
this RN attempt to medicate pt per MAR, pt refusing to take medications, this Rn attempt to crush medications in applesauce and pt refusing to consume applesauce, pt attempting to strike staff in the process, all safety measures maintained. MD aware.
--- NOTE | 2021-08-16 21:27 | PC.NURSE ---
pt refusing VS at ths time
[2021-08-16 23:47] VITALS: BP 132/86; PULSE 65; RESP 14; O2SAT 97
--- NOTE | 2021-08-17 03:43 | PC.NURSE ---
pt provided perineal care & linen change, linen change required 3x EDT and this RN due to pt attempting to strike staff
--- NOTE | 2021-08-17 05:02 | PC.NURSE ---
pt continues to refuse food & medications.
[2021-08-17 05:52] VITALS: RESP 20
--- NOTE | 2021-08-17 07:19 | PC.NURSE ---
report taken from leonela rn- pt sleeping at this time. resp even and unlabored. per digital coordinator rn- pt continues to refuse medications, spit and hit staff. will speak to case management about plan of care.
--- NOTE | 2021-08-17 10:15 | PC.NURSE ---
pt continues to refuse medications, swatting at this rn and getting agitated
[2021-08-17] MEDS: OLANZapine 10 MG VIAL 5 MG IM (12:43)
[2021-08-17] MEDS: Acetaminophen Supp 650 MG SUPP.RECT PR ×2 (12:46→19:07)
--- NOTE | 2021-08-17 12:51 | PC.NURSE ---
multiple staff to bedside to assist lab work etc- d/t pt not eating/drinking/taking meds for days. iv placed r hand and medicated per emar. unable to obtain lab work at this time.
[2021-08-17 12:52] VITALS: BP 120/64; PULSE 84; RESP 26; TEMP 38.7
[2021-08-17 12:53] VITALS: PULSE 80; TEMP 38.1
[2021-08-17 13:28] LABS: MANUAL DIFF FLAG NO
[2021-08-17 13:31] LABS: Basophils Percent Auto 0.1 % (0-2); Eosinophils Absolute Auto 0.1 X10*3/uL (0.0-0.4); Eosinophils Percent Auto 0.7 % (0-4); Hematocrit 38.9 % (37.0-47.0); Hemoglobin 12.7 g/dl (12.0-16.0); Imm Gran Abs Auto 0.03 X10*3/uL (0.00-0.03); Imm Gran Pct Auto 0.4 % (0.0-0.4); Lymphocytes Absolute Auto 0.5 X10*3/uL (1.2-4.9); Lymphocytes Percent Auto 6.7 % (20-40); Mean Corpuscular HGB Conc 32.6 g/dl (31.0-35.0); Mean Corpuscular Hemoglobin 28.6 pg (27.0-33.0); Mean Corpuscular Volume 87.6 fL (80.0-98.0); Mean Platelet Volume 10.1 fL (9.4-12.3); Monocytes Absolute Auto 0.8 X10*3/uL (0.1-1.2); Monocytes Percent Auto 10.1 % (2-11); Neutrophils Absolute Auto 6.3 x10*3/uL (2.0-8.3); Platelet Count 197 X10*3/uL (160-400); Red Blood Count 4.44 X10*6/uL (4.20-5.50); Red Cell Distribution Width 14.9 % (11.0-16.0); White Blood Count 7.7 X10*3/uL (4.8-10.8)
[2021-08-17] MEDS: cefTRIAXone sodium 1 GM in 0.9 % Sodium Chloride 50 ML IV (13:41)
[2021-08-17 14:04] LABS: Anion Gap 15 (12-20); Blood Urea Nitrogen 20 mg/dL (9-16); Carbon Dioxide 26 mmol/L (22-29); Chloride 100 mmol/L (96-108); Creatinine Clr Calc Pharmacy 59.6; Estimated Glomerular Filt Rate > 60; Glucose Random 89 mg/dL (60-115); Magnesium 1.8 mg/dL (1.6-2.6); Potassium 3.9 mmol/L (3.3-5.1); Sodium 137 mmol/L (135-145)
[2021-08-17 15:33] VITALS: PULSE 66; RESP 20; TEMP 37.6
--- NOTE | 2021-08-17 17:43 | PC.NURSE ---
spoke with pa- plan for psych consult and dc back to snf
[2021-08-17 18:11] VITALS: BP 142/52; PULSE 59; RESP 20; TEMP 37.9; O2SAT 96
--- NOTE | 2021-08-17 18:48 | PC.NURSE ---
pt drank small amount of water and ate fruit. allowed pct to clean mouth.
--- NOTE | 2021-08-17 20:54 | MHC.CM.ED ---
CM consulted. BHN and psych consult pending. Pt to return to [facility]. Facility updated regarding pending psych consult. CM following for d/c needs.
--- NOTE | 2021-08-17 21:30 | PC.NURSE ---
Pt refusing PO medications Pt alert but confused per baseline Breathing even and unlabored Awaiting psych eval Will continue to monitor
--- NOTE | 2021-08-17 22:34 | PC.NURSE ---
Pt attempting to get up and pulling at breif Pt refusing night time PO meds. This RN attempted multiple times with pudding and juice. Pt refused multiple times Rachel, provider made aware. Will continue to monitor
[2021-08-17 23:14] VITALS: PULSE 82; RESP 23; O2SAT 96
--- NOTE | 2021-08-18 06:00 | PC.NURSE ---
Pt was dry when checked. Refused blood pressure at this time.
--- NOTE | 2021-08-18 07:55 | PC.NURSE ---
Patient was wiped clean. bed change completed with help from Indra. Purewick changed, new one put on. Powder applied under arms and skin folds. Patient repositioned. Bed alarm on before leaving room. Tried feeding patient with no success, pt refused.
--- NOTE | 2021-08-18 08:08 | PC.NURSE ---
skin care provided. bed changed. pt resting now in NAD. PLan is for consult prior to return to [facility].
--- NOTE | 2021-08-18 08:19 | MHC.CM.PN ---
REFERRAL PLACED TO [facility], WHERE PATIENT IS IN FROM. OF THIS NOTE, IT IS UNCLEAR IF SHE IS A BED HOLD OR NOT. FACILITY IS WILLING TO FOLLOW FOR APPROPRIATENESS OF A BED OFFER ONCE MEDICALLY AND PSYCHIATRICALLY CLEARED/EVALUATED.
[2021-08-18 08:36] LABS: TSH reflex Free T4 4.04 uIU/mL (0.32-4.0)
[2021-08-18 09:39] LABS: Free T4 (Free Thyroxine) 1.08 ng/dL (0.71-1.85)
[2021-08-18 09:55] VITALS: BP 148/76; PULSE 71; RESP 14
--- NOTE | 2021-08-18 10:10 | PC.NURSE ---
pt refused po meds. PA aware, will change route of Abx to IM
[2021-08-18] MEDS: cefTRIAXone sodium 1 GM in 0.9 % Sodium Chloride 50 ML IV (10:19)
[2021-08-18] MEDS: Ketorolac Tromethamine 15 MG/ML VIAL IVPUSH (10:20)
--- NOTE | 2021-08-18 10:21 | MHC.CM.ED ---
CM called [facility] to verify that they received the psych consult from 08/17. Per [facility], pt is on the list for consultation. Candida dunn.
[2021-08-18 10:51] VITALS: BP 131/52; PULSE 64; RESP 16; TEMP 37.6; O2SAT 96
--- NOTE | 2021-08-18 15:08 | PC.NURSE ---
Offered patient lunch, patient refused to eat. Patient was dry upon check, repositioned with Anna.
--- NOTE | 2021-08-18 19:35 | PC.NURSE ---
PATIENT FED HERSELF ATE 1/2 GRILLED CHEESE SANDWICH ,3 CHICKEN FINGERS ,TOMATO SOUP AND 2 BAGS OF POTATO CHIPS ,DRAND 360 ML WATER , PATIENT IN VERY GOOD SPIRITS ,SMILING TALKING TO STAFF.
[2021-08-18 20:48] VITALS: BP 143/65; PULSE 74; RESP 16; TEMP 36.6; O2SAT 97
--- NOTE | 2021-08-18 20:56 | PC.NURSE ---
BED BATH GIVEN TO PATIENT ,AND BEDDING CHANGE ,PATIENT WAS COMBATIVE DURING CARE .
[2021-08-19 00:19] VITALS: BP 142/58; PULSE 74; RESP 20; O2SAT 95
--- NOTE | 2021-08-19 06:15 | PC.NURSE ---
Patient refused Levothyroxine 50 mg PO.
--- NOTE | 2021-08-19 08:57 | PC.NURSE ---
Pt repositioned in the bed with ax1. Pt sitting upright, prepped for breakfast. Pts breakfast tray provided, RN helped pt set up her tray. Pt continues to refuse AM medications. RN tried meds in pudding and with water with no luck. Education attempted by this RN. pt continues to be confused and very altered.
--- NOTE | 2021-08-19 11:53 | PC.NURSE ---
Pt resting in hospital bed. Refusing vitals. Purewick remains in place, urine present in the suction canister. Pt combative when attempting to clean her up. pt appears to be dry and purewick is working. Pt repositioned in the bed with ax2. Camera remains at the bedside.
--- NOTE | 2021-08-19 13:34 | MHC.CM.PN ---
Review of EMR/notes; pt is holding in the ED for a psych eval in order to return to [facility] where she is a resident. Call placed to [facility] to inquire on her status - STR vs LTC. No one at the facility could provide an answer and suggested CM call back on Saturday to speak with admissions. [facility] aware that pt requires a psych eval for clearance to return to SNF - they cannot state when this would occur only that the order is active. Contacted nursing supervisor agricultural education, Lisy for assistance in expediting the psych eval to facilitate pt's return to SNF. CM to follow
[2021-08-19 14:55] VITALS: BP 167/70; PULSE 69; RESP 20; O2SAT 92
--- NOTE | 2021-08-19 19:39 | PC.NURSE ---
Took report from Lee to assume care of Pt, Pt resting, call light in reach, this RN continues to monitor.
[2021-08-19 21:49] VITALS: BP 132/100; PULSE 68; RESP 16; TEMP 36.8; O2SAT 92
[2021-08-20] VITALS (10 sets, daily range): BP systolic 127–152; BP diastolic 41–70; PULSE 57–83; RESP 13–20; TEMP 36.6; O2SAT 93–98
[2021-08-20] MEDS: Acetaminophen 325 MG TABLET 650 MG PO ×2 (02:15→16:34)
[2021-08-20] MEDS: traZODone HCL 50 MG TABLET PO (02:16)
[2021-08-20] MEDS: Sertraline HCL 50 MG TABLET PO (02:16)
[2021-08-20] MEDS: Levothyroxine Sodium 50 MCG TABLET PO (02:16)
--- NOTE | 2021-08-20 09:42 | PC.NURSE ---
CALL PLACED @ THIS TIME TO CHECK ON PSYCH CONCULT PUT IN ON THE August. US EDUARDO ANSWERS, SAYS HE IS UNABLE TO SEE THAT PART OF THE PROCESS BUT WILL CHECK IT WTH DR MCCLAIN WHEN HE ARRIVES ON THE UNIT TODAY.
[2021-08-20 12:25] LABS: MANUAL DIFF FLAG NO
[2021-08-20 12:26] LABS: Basophils Percent Auto 0.3 % (0-2); Eosinophils Absolute Auto 0.2 X10*3/uL (0.0-0.4); Eosinophils Percent Auto 2.5 % (0-4); Hematocrit 42.6 % (37.0-47.0); Hemoglobin 13.1 g/dl (12.0-16.0); Imm Gran Abs Auto 0.02 X10*3/uL (0.00-0.03); Imm Gran Pct Auto 0.3 % (0.0-0.4); Lymphocytes Absolute Auto 0.7 X10*3/uL (1.2-4.9); Lymphocytes Percent Auto 9.7 % (20-40); Mean Corpuscular HGB Conc 30.8 g/dl (31.0-35.0); Mean Corpuscular Hemoglobin 27.5 pg (27.0-33.0); Mean Corpuscular Volume 89.5 fL (80.0-98.0); Mean Platelet Volume 9.9 fL (9.4-12.3); Monocytes Absolute Auto 0.7 X10*3/uL (0.1-1.2); Monocytes Percent Auto 9.3 % (2-11); Neutrophils Absolute Auto 5.5 x10*3/uL (2.0-8.3); Neutrophils Percent Auto 77.9 % (45-73); Platelet Count 248 X10*3/uL (160-400); Red Blood Count 4.76 X10*6/uL (4.20-5.50); Red Cell Distribution Width 14.5 % (11.0-16.0); White Blood Count 7.1 X10*3/uL (4.8-10.8)
[2021-08-20 12:49] LABS: Alanine Aminotransferase 10 U/L (0-31); Albumin Level 3.8 g/dL (3.5-5.0); Alkaline Phosphatase 68 U/L (39-117); Anion Gap 16 (12-20); Aspartate Amino Transferase 14 U/L (5-31); Bilirubin Total 1.1 mg/dL (0.0-1.0); Blood Urea Nitrogen 28 mg/dL (9-16); Calcium 9.3 mg/dL (8.4-10.2); Carbon Dioxide 29 mmol/L (22-29); Chloride 105 mmol/L (96-108); Creatinine Clr Calc Pharmacy 61.2; Estimated Glomerular Filt Rate > 60; Glucose Random 101 mg/dL (60-115); Magnesium 1.8 mg/dL (1.6-2.6); Potassium 4.2 mmol/L (3.3-5.1); Sodium 146 mmol/L (135-145); Total Protein 6.4 g/dL (6.5-8.0)
--- NOTE | 2021-08-20 19:25 | PC.NURSE ---
Attempted vitals, patient confused and refusing to allow nurse to place blood pressure cuff on arm. MD aware. Will monitor closely.
--- NOTE | 2021-08-20 21:58 | PC.NURSE ---
Addendum entered by Eulalia Taylor RN 08/20/21 22:42: 22:24 Patient increasingly agitated, MD at bedside and Zyprexa 5mg IM given per MD order. 1:1 sitter at bedside and VS q15. Original Note: Patient spit out bedtime medications and attempting to get out of bed multiple times. Dr Limon notified.
[2021-08-20] MEDS: OLANZapine 10 MG VIAL 5 MG IM (22:24)
[2021-08-21] LABS: Appearance Urine HAZY; Color Urine YELLOW; Glucose Urine UA NEG (NEG); Leukocyte Esterase Urine NEG (NEG); Nitrite Urine NEG (NEG); Specific Gravity - Urine 1.025 (1.005-1.025); UACC Culture Trigger NO; Urine Blood NEG (NEG); Urine Ketones 5 MG/DL (NEG); Urine Protein 2+ MG/DL (NEG-TRACE)
[2021-08-21 00:08] LABS: Amorphous Sediment Urine 3+ /LPF; Bacteria Urine 1+ /LPF; Squamous Epithelial Cell Urine 1+ /LPF
--- NOTE | 2021-08-21 04:23 | PC.NURSE ---
Upon rounding, patient linens changed and new gown provided. Patient yelling, resistant to care, scratched director of emergency nursing on left wrist. MD and Charge Nurse aware.
[2021-08-21 06:07] VITALS: BP 150/68; PULSE 66; RESP 16; TEMP 36.6; O2SAT 100
--- NOTE | 2021-08-21 08:26 | PC.NURSE ---
Addendum entered by Brandi Jaimes RN 08/21/21 18:51: Able to give antibiotic and synthroid crushed in water. Original Note: Patient refusing to drink water with synthroid mixed in. Patient refused pudding with antibiotic crushed in it. Actively continuing to attempt to give patient medications.
[2021-08-21] MEDS: Levothyroxine Sodium 50 MCG TABLET PO (08:36)
--- NOTE | 2021-08-21 11:40 | MHC.CM.ED ---
Call placed to [facility] to inquire on psych eval. Information relayed to staff to expedite assessment: Call placed to Areils, apartment community manager at [facility] where pt is a confirmed LTC and bed hold resident. Per Arelis, pt has a baseline dx of dementia and has exhibited aggressive, uncooperative behaviors x several months. Pt seen at [facility] under section 12: found to have a UTI being managed with po ATB. Call placed to Arelis, apartment community manager at [facility] where pt is a confirmed LTC and bed hold resident. Per Arelis, pt has a baseline dx of dementia and has exhibited aggressive, uncooperative behaviors x several months. Pt has been seen by [facility] while at the facility and medication recommendations have been made, however, pt has a hx of refusing medications. Pt does not have a Buckley order at this time per Arelis. Discussed UTI findings to which Arelis stated that the presense of UTI's at the facility have not impacted her behaviors that she is just as aggressive without a UTI. Arelis notes that pt throws objects at other residents and has to be removed from common areas and isolated d/t behaviors. Discussed pending psych eval but informed Arelis that pt may not qualify for juan david-psych and would then need to return to her LTC/bed hold residence and perhaps require a Buckley order that they can initiate with NEG continued involvement. Arelis states that they would likely just send her back under a section 12 because she's not appropriate for a SNF CM to follow.
[2021-08-21 17:02] VITALS: BP 103/53; PULSE 82; RESP 18; O2SAT 98
--- NOTE | 2021-08-21 19:35 | P.CNPS_ITS ---
History of Present Illness Date of Service: 08/21/21 Chief Complaint: SEC 12,COMBATIVE TOWARDS STAFF @ SNF PER EMS Reason for Consult: medication HPI Narrative: Claudia is an 80 y.o. Female who carries a dx of dementia with behavioral dist urbance. She presented to [facility] ED on 08/14/21 from her [facility] due to staff reporting pt has been aggressive, trying to hit other residents with her walker, yelling and go to hell. Pt is not verbal but makes vocalizations to communicate and get needs met. She ambulates with a walker but has primarily been in bed. She was found to have a UTI, has hx of chronic UTI.?? I attempted to evaluate the pt this evening, however she is asleep and per team she has been sleeping all day, up at night yelling. Per RN, pt has not been eating or drinking, sleeping all day. She has been non-adherent with PO medications, however has had three doses of her antibiotic, which took some doing. During the daytime, pt has not been agitated or aggressive. However, she received IM zyprexa last night. Per CM, at night pt yells for ?no reason? and ?screeches? if anyone attempts interventions. She has not been attempting to get out of bed or elope. Has not been assaultive. Per note, staff at ?s intermediate care facility report that at baseline pt has a dx of dementia and she has been aggressive, uncooperative x several months.? Pt throws objects at other residents and has had to be removed from common areas and isolated d/t behaviors. Pt was seen by [facility] while at the facility and medication recommendations have been made, however, pt has a hx of refusing medications. Pt does not have a Buckley order at this time.? [facility] Medical History Dementia with behavioral disturbance Hyperlipemia Hypothyroid Metabolic syndrome Secondary hypertension Diagnostics Vital Signs (24Hr): Vital Signs - 24 hr 08/20/21 22:24 08/20/21 22:39 08/20/21 22:54 Temperature Pulse Rate 59 64 74 Respiratory Rate 16 16 13 Blood Pressure 149/52 H 151/41 H 130/49 L Pulse Oximetry 97 93 93 Oxygen Delivery Method Room Air Room Air Room Air 08/20/21 23:11 08/20/21 23:25 08/21/21 06:07 Temperature 98 F Pulse Rate 83 82 66 Respiratory Rate 18 16 16 Blood Pressure 127/48 L 130/58 L 150/68 H Pulse Oximetry 94 95 100 Oxygen Delivery Method Room Air Room Air Room Air 08/21/21 17:02 Temperature Pulse Rate 82 Respiratory Rate 18 Blood Pressure 103/53 L Pulse Oximetry 98 Oxygen Delivery Method Oxymask BMI result Body Mass Index 30.2 Labs Results: 08/20/21 12:21 08/20/21 12:21 Labs: Laboratory Results - last 48 hr 08/20/21 08/20/21 08/20/21 12:21 12:21 23:46 WBC 7.1 RBC 4.76 Hgb 13.1 Hct 42.6 MCV 89.5 MCH 27.5 MCHC 30.8 L RDW 14.5 Plt Count 248 D MPV 9.9 Immature Gran % (Auto) 0.3 Neut % (Auto) 77.9 H Lymph % (Auto) 9.7 L [place] % (Auto) 9.3 Eos % (Auto) 2.5 Baso % (Auto) 0.3 Lymph # (Auto) 0.7 L [place] # (Auto) 0.7 Eos # (Auto) 0.2 Baso # (Auto) 0.0 Abs Immat Gran (auto) 0.02 Absolute Neuts (auto) 5.5 Absolute Nucleated RBC 0.000 Nucleated RBC % (auto) 0.0 Sodium 146 H Potassium 4.2 Chloride 105 Carbon Dioxide 29 Anion Gap 16 BUN 28 H Creatinine 0.75 Estim Creat Clear Calc 61.2 Estimated GFR > 60 Random Glucose 101 Calcium 9.3 Magnesium 1.8 Total Bilirubin 1.1 H AST 14 ALT 10 Alkaline Phosphatase 68 Total Protein 6.4 L Albumin 3.8 Urine Color YELLOW Urine Appearance HAZY Urine pH 6.0 Ur Specific [place] 1.025 Urine Protein 2+ H Urine Glucose (UA) NEG Urine Ketones 5 Urine Blood NEG Urine Nitrite NEG Ur Leukocyte Esterase NEG Urine RBC 1-4 Urine WBC 1-4 Ur Squamous Epith Cells 1+ Amorphous Sediment 3+ Urine Bacteria 1+ Mental Status Exam Mental Status Exam Narrative: Pt is not alert or oriented, asleep in bed. She is a frail appearing elder in hospital attire. She is non-verbal but screeches at night. No concerns for SI/SIB, no imminent safety concerns. No known psychotic sx. Has advanced dementia. Poor insight and judgment. Medications Medications Current Medications Acetaminophen (Acetaminophen 325 Mg Tablet) 650 mg PO TID [facility] Last Admin: 08/21/21 16:52 Dose: Not Given Calcium Carbonate/Cholecalciferol (Calcium + Vitamin D 250 Mg Tablet) 500 mg PO DAILY [facility] Last Admin: 08/21/21 08:27 Dose: Not Given Cefuroxime Axetil (Cefuroxime Axetil 250 Mg Tablet) 250 mg PO BID [facility] Last Admin: 08/21/21 08:43 Dose: 250 mg Levothyroxine Sodium (Levothyroxine Sodium 50 Mcg Tablet) 50 mcg PO DAILY@0600 [facility] Last Admin: 08/21/21 08:36 Dose: 50 mcg Melatonin (Melatonin 3 Mg Tablet) 9 mg PO BEDTIME [facility] Last Admin: 08/20/21 21:58 Dose: Not Given Pharmacy Consult (Consult Rx Perform Med Rec) 1 each MISCELLANE ONCE PRN PRN Reason: Consult order Sertraline HCl (Sertraline Hcl 50 Mg Tablet) 50 mg PO BEDTIME [facility] Last Admin: 08/20/21 21:57 Dose: Not Given Trazodone HCl (Trazodone Hcl 50 Mg Tablet) 50 mg PO BEDTIME [facility] Last Admin: 08/20/21 21:57 Dose: Not Given Allergies Allergies Allergy/AdvReac Type Severity Reaction Status Date / Time No Known Allergies Allergy Verified 07/04/21 11:28 [No Known Allergies*] Assessment & Plan Assessment & Plan (1) Dementia with behavioral disturbance: Status: Acute Code(s): F03.91 - Unspecified dementia with behavioral disturbance Plan Claudia is an 80 y.o. Female who carries a dx of dementia with behavioral disturbance. She presented to [facility] ED on 08/14/21 from her [facility] due to staff reporting pt has been aggressive, trying to hit other residents with her walker, yelling and go to hell. She has been behaving this way for several months. Pt is not verbal but makes vocalizations to communicate and get needs met. She ambulates with a walker but has primarily been in bed. She was found to have a UTI, has hx of chronic UTI.?? Plan: Will start zydis 5 mg at bedtime for agitation in the context of dementia, pt has been non-adherent with PO medication so dissolving tablet may be ideal. Will also start zydis 5 mg Q6H PRN for agitation. She does not meet criteria for inpatient level of care in a locked geriatric psych facility. She should continue to be followed by [facility], who may pursue a community Buckley order. -Continue monitoring medically. -Pt does not meet criteria for involuntary inpatient psych admission I have shared this with Dr. Flores Thank you for this consultation. If you have any questions or concerns, please do not hesitate to contact psychiatry service. ? I spent minutes with the patient and/or on the patient floor today, greater than?50% of which was spent counseling/coordinating care.
[2021-08-21] MEDS: OLANZapine ODT 10 MG TAB.RAPDIS 5 MG TRANSLINGU (21:49)
--- NOTE | 2021-08-21 21:53 | MHC.CM.ED ---
Kathia Alvarado 3D TECHNOLOGIST Psych in to see pt. Record reviewed. Awaiting consult note. Med recommendations made. Not appropriate for juan david-psych. Pt has dementia with behavioral disturbance. Will upload to [facility] when completed and request D/C to SNF. CM to follow for d/c needs.
[2021-08-21 23:34] VITALS: BP 128/72; PULSE 84; RESP 20; O2SAT 94
[2021-08-22 06:16] VITALS: PULSE 87; RESP 20; O2SAT 100
--- NOTE | 2021-08-22 06:20 | PC.NURSE ---
Addendum entered by Eulalia Taylor RN 08/22/21 06:37: 0637: Patient attempted to get out of bed again, upon helping back in bed, patient grabbed nurse's hair and tried to pull. Patient eventually let go and is back in bed. Alarms in place, MD aware. Original Note: Patient remains confused and increasingly agitated, set off bed alarm trying to crawl out. Staff at bedside in attempts to reassure patient. Tele sitter remains at bedside. MD aware, will monitor closely.
--- NOTE | 2021-08-22 07:16 | PC.NURSE ---
patient refuse breakfast.
--- NOTE | 2021-08-22 07:49 | MHC.CM.ED ---
Patient remains in ER. Psych consult completed by GRADY Bae on 08/21. Patient is a director long term care care resident of [facility]. Clinical updates sent via [employer]. Continue to monitor for d/c needs.
--- NOTE | 2021-08-22 09:35 | PC.NURSE ---
Attempted to medicate pt, pt refused, became combative. Hitting and scratching. Refusing any PO intake, tried applesauce, pudding, and water. Camera in place, will continue to monitor.
--- NOTE | 2021-08-22 12:28 | PC.NURSE ---
attempted to vital patient, unable to obtain vitals due to patient being combative
--- NOTE | 2021-08-22 12:58 | MHC.CM.ED ---
Addendum entered by Shanice Alonso 08/22/21 14:28: Received telephone call from Rufina health and social care teacher at [facility]. T/W explained patient does not qualify for inpatient psych because patient's behaviors are related to her dementia diagnosis, not mental health. Rufina verbalized understanding. Patient's sister is asking to meet with the wind development director at the facility. [facility] requesting patient transfer back to their building after this meeting. T/W requested meeting be scheduled for the morning. Original Note: Received message from [facility] via [employer]. They are requesting patient be re-evaluated by psych since patient was asleep when consult was completed. This was discussed with Elza Lew. It would not be appropriate for psych to re-eval patient. She is a shelter care resident of [facility] with a long standing history of advanced dementia. Consult was completed using collateral info, and input from the staff providing care to the patient. Medication recommendations were made. Patient will not need a Robert's order because patient has a HCP, not a guardianship. Facility can also follow up with [facility] for any other needs the patient may have. This information was relayed via [employer]. Continue to monitor for d/c needs.
--- NOTE | 2021-08-22 13:35 | PC.NURSE ---
attempted to feed pt lunch off of their lunch tray, patient refused to eat, kept turning head and swatting food away.
--- NOTE | 2021-08-22 15:25 | PC.NURSE ---
Pt lines changes, pure wick remains in place. Camera in room. Will continue to monitor.
--- NOTE | 2021-08-22 16:16 | MHC.CM.ED ---
CM received telephone call from heating worker at [facility] regarding pt d/c plan. S.W. working to arrange a meeting with pt sister, Juan J ([phone]). S.W. was under the impression that pt was receiving IM antipsychotics. Pt was receiving IM antibiotics. Pt has been consistently refusing all medications. Per Psych recommendations, pt did receive 1 moon of Zyprexa last evening-sublingual. S.W. aware that medication was ordered. Explained that the ED is not a place for this pt with advanced dementia with behavior disturbance. Explained that pt sleeps most of day. Then will occasionally either mumble to herself or yell out, screeching at time. Pt is not ambulating and is not aggressive. Pt does vocalize when staff gives personal care. CM suggested that facility pursue a Buckley order to ensure that patient gets her medications at the facility. S.W will reach out to CM after family meeting. SW aware that CM would like to return patient to [facility], where she resides. CM to follow for d/c needs.
--- NOTE | 2021-08-22 17:23 | MHC.CM.ED ---
Addendum entered by Hollie Ferrara 08/22/21 19:02: CM spoke with HCP/sister Anika Tolentino regarding conversation with pt's daughter, Marilee. According to HCP, this has been an ongoing problem, with the patients children not really caring for their mother, but then angry that their mother's sisters are. Anika tells CM that pt's daughter called her today, distraught and yelling at her. Per Anika, the patient's daughter was never her sister's HCP. Anika does have a meeting with [facility] tomorrow. Anika expressed concerns to CM that perhaps her sister would be better served if she went to another facility. CM did explain that as HCP, she can make that decision, but that the SNF should facilitate an appropriate transfer, as the ED is not the place for her sister. She has already been here for 7 days. CM will reach out to sister/HCP Anika in the morning. CM to follow for d/c needs. Original Note: CM received a telephone call from pt daughter Marilee Geller. Marilee was yelling at CM and hysterical. Telling CM that she does not her mother to return to [facility], as they do nothing for her, no stimulation at all. Daughter was distraught. Screaming into the phone that her aunt, Anika Tolentino, the patient's sister, stole the HCP from her! Yelling at CM. Telling CM that I obviously do not understand dementia! Tried to speak with Marilee about the fact that her aunt Juan J is the documented HCP and asked if she had another HCP completed after 11/08/15, when this HCP was completed. Marilee said she did not and she was trying to change that and has contacted an health care attorney. CM again explained that legally, her aunt has the right to make decisions for her mother. Marilee said her mother was better at the last placement, but she could not tell me where the pt was. Stated that was a year ago. CM tried to gently explain that dementia, especially severe dementia, progresses. Pt was enraged, crying and said I was not listening or helping and she would no longer speak with me. She then hung up. CM will speak with Sister/HCP Anika about this conversation. CM to follow for d/c needs.
[2021-08-22] MEDS: OLANZapine ODT 10 MG TAB.RAPDIS 5 MG TRANSLINGU (21:04)
--- NOTE | 2021-08-22 21:10 | PC.NURSE ---
Attempted to medicate pt with scheduled night meds, Olanzapine taken, pt refused to open mouth for tylenol or sertaline. Attempted to provide pt with PO fluids, pt continued to refuse. Purewick remains in place draining lars colored urine. Pt awake alert and confused per baseline, non sensical speech. CM bedsearch continues. Will continue to monitor.
[2021-08-23 02:00] VITALS: BP 194/69; PULSE 72; RESP 22; TEMP 35.9; O2SAT 97
--- NOTE | 2021-08-23 03:28 | PC.NURSE ---
Took over for Ale Schrader. Pt is sleeping at this time. No sign of distress.
[2021-08-23 06:27] VITALS: BP 161/80; PULSE 60; RESP 18; TEMP 36.6; O2SAT 99
[2021-08-23] MEDS: Levothyroxine Sodium 50 MCG TABLET PO (06:59)
--- NOTE | 2021-08-23 06:59 | PC.NURSE ---
pt reposition for comfort,sana care complete. Mediated per Mar.
--- NOTE | 2021-08-23 08:02 | PC.NURSE ---
patient refuse breakfast.
--- NOTE | 2021-08-23 10:36 | MHC.CM.ED ---
Per [facility], patient can return to their facility. [facility] booked for 11am. [facility] with chart. Patient, sister/HCP Madelin Donaldson RN and Dr Olguin aware. Continue to monitor for d/c needs.
--- NOTE | 2021-08-23 10:46 | PC.NURSE ---
This RN called [facility], report given to Steph
[2021-08-23] MEDS: OLANZapine ODT 10 MG TAB.RAPDIS 5 MG TRANSLINGU (11:17)
--- NOTE | 2021-08-23 11:19 | PC.NURSE ---
PRN prexa given for transport back to [facility]
== END 2021-08-23 14:00 | disposition skilled nursing facility (03) ==
PROVIDERS: Emergency Medicine; Nurse Practitioner Family; Physician Assistant Medical; Social Worker; Emergency Provider Emergency Medicine
DX: N39.0 Urinary tract infection, site not specified (principal); B96.20 Unspecified Escherichia coli [E. coli] as the cause of diseases classified elsewhere; F03.91 Unspecified dementia, unspecified severity, with behavioral disturbance; F05 Delirium due to known physiological condition; R45.1 Restlessness and agitation; R50.9 Fever, unspecified; E78.5 Hyperlipidemia, unspecified; E88.81 Metabolic syndrome and other insulin resistance; I15.8 Other secondary hypertension; E03.9 Hypothyroidism, unspecified; Z79.899 Other long term (current) drug therapy; Z91.14 Patient's other noncompliance with medication regimen; Z91.81 History of falling
CPT/HCPCS: 36415; 80048; 80053; 80076; 81001; 81003; 83735; 84439; 84443; 85025; 87086; 87088; 87186; 96365; 96366; 96372; 96375; 99285; J0696; J1885; J2060; Q0163